=== PATIENT | female | born 1960 | race Hispanic/Latino ===

== ENCOUNTER 2021-04-19 09:15 | Emergency (ER) | payer OTHER ==
[~2021-04-19] VITALS: Ht 152.4 cm; Wt 84.5 kg
[2021-04-19 10:08] LABS: HEMATOCRIT 40.3 % (37.0-47.0); HEMOGLOBIN 12.9 g/dl (12.0-16.0); IMMATURE GRANULOCYTES 0.1 % (0.0-5.0); MEAN CELL VOLUME 94.2 fL CALC (80.0-100.0); MEAN CORPUSCULAR HGB 30.1 pG CALC (26.0-32.0); NEUT# 4.69 thou/uL (2.00-7.15); RED BLOOD COUNT 4.28 mill/uL (4.20-5.60); RED CELL DISTRI WIDTH 13.2 % (11.5-15.5)
[2021-04-19 10:14] LABS: URINE BILIRUBIN - DIPSTICK NEGATIVE (NEGATIVE); URINE BLOOD DIPSTICK NEGATIVE (NEGATIVE); URINE COLOR YELLOW; URINE GLUCOSE - DIPSTICK NEGATIVE (NEGATIVE); URINE KETONE TRACE mg/dL (NEGATIVE); URINE LEUK ESTERASE NEGATIVE (NEGATIVE); URINE PH 5.5 (4.5-8.0); URINE PROTEIN - DIPSTICK NEGATIVE (NEG-TRACE); URINE SPECIFIC GRAVITY >=1.030; URINE UROBILINOGEN - DIPSTICK 0.2 E.U./dL (0.2)
[2021-04-19 10:18] LABS: URINE NITRITE - DIPSTICK NEGATIVE (Negative)
[2021-04-19 10:30] LABS: ALBUMIN 3.8 g/dL (3.2-5.0); ALKALINE PHOSPHATASE 77 u/l (38-126); ANION GAP 10 (6-22 (CALC)); BILIRUBIN, TOTAL 0.4 mg/dL (0.0-1.4); BUN 16 mg/dL (7-17); BUN/CREATININE RATIO 28 (12-20 (CALC)); CARBON DIOXIDE 26 mmol/l (22-30); CHLORIDE 106 mmol/l (95-108); CREATININE 0.6 mg/dL (0.5-1.0); GFR > 60 ML/MIN (>=60 (CALC)); GFR FOR AFR.AMER. > 60 ML/MIN (>=60 (CALC)); LIPASE 58 u/l (23-300); POTASSIUM 4.4 mmol/l (3.5-5.1); SGOT/AST 30 u/l (14-36); SODIUM 137 mmol/l (137-146)
[2021-04-19 11:59] VITALS: BP 128/65
== END 2021-04-19 12:00 | disposition home or self-care (01) | DRG 392 ==
LOC: ED 09:15
PROVIDERS: Family Medicine
DX: R10.32 Left lower quadrant pain (principal)
CPT/HCPCS: Q9967

== ENCOUNTER 2021-09-06 07:18 | Day surgery (SDC) | payer OTHER ==
[~2021-09-06] VITALS: Ht 144.8 cm; Wt 85.7 kg
[2021-09-06 09:40] VITALS: BP 91/50
== END 2021-09-06 09:57 | disposition home or self-care (01) | DRG 951 ==
LOC: ENDO 07:18
PROVIDERS: ATTEND Surgery
PROC: 0DJD8ZZ Inspection of Lower Intestinal Tract, Via Natural or Artificial Opening Endoscopic (ICD-10-PCS; principal; 2021-09-06)
DX: Z12.11 Encounter for screening for malignant neoplasm of colon (principal)

== ENCOUNTER 2024-05-20 08:04 | Day surgery (SDC) | payer OTHER ==
[~2024-05-20] VITALS: Ht 149.9 cm; Wt 84.4 kg
[~2024-05-20 08:04] MED LIST: ALBUTEROL SULFATE IN; GABAPENTIN300 M2; KAPSPARGO SPRIN25 MG; MELOXICAM15 MG PO; OMEPRAZOLE DR40 MG PO; TRAZODONE100 MG PO; WIXELA INHUB 251 AER IN
[2024-05-20] MEDS ORDERED: LACTATED RINGER'S 1,000 ML IV ONE (08:07)
[2024-05-20] MEDS ORDERED: FAMOTIDINE 10MG/ML 2ML SDV IV ONE (08:07)
[2024-05-20] MEDS ORDERED: OMEPRAZOLE DR40 MG PO (10:41)
[2024-05-20 11:05] VITALS: BP 125/72
[2024-05-20] MEDS ORDERED: GLYCOPYRROLATE 0.2 MG/ML IV ONE (13:25)
[2024-05-20] MEDS ORDERED: PROPOFOL 200 MG/20 ML VIAL IV ONE (13:25)
[2024-05-20] MEDS ORDERED: LIDOCAINE HCL 2% 2ML SDV IV ONE (13:25)
== END 2024-05-20 11:00 | disposition home or self-care (01) ==
LOC: ORM 08:04
PROVIDERS: ATTEND Surgery
DX: K25.9 Gastric ulcer, unspecified as acute or chronic, without hemorrhage or perforation (principal); K31.89 Other diseases of stomach and duodenum; I10 Essential (primary) hypertension; Z79.899 Other long term (current) drug therapy

== ENCOUNTER 2025-01-05 14:37 | Emergency (ER) | payer OTHER ==
[2025-01-05] VITALS (11 sets, daily range): BP systolic 90–141; BP diastolic 57–79
[~2025-01-05] VITALS: Ht 149.9 cm; Wt 88.5 kg
[2025-01-05] MEDS ORDERED: ONDANSETRON HCl 4 MG/2 ML SDV IV ONE (15:05)
[2025-01-05 15:19] LABS: BASO% 0.4 % (0-3); EOS% 2.1 % (0-8); HEMATOCRIT 42.1 % (37.0-47.0); HEMOGLOBIN 13.8 g/dl (12.0-16.0); IMMATURE GRANULOCYTES 0.1 % (0.0-5.0); LYMPH% 32.2 % (15-41); MEAN CELL VOLUME 92.9 fL CALC (80.0-100.0); MEAN CORPUSCULAR HGB 30.5 pG CALC (26.0-32.0); MEAN CORPUSCULAR HGB CONC 32.8 g/dL CAL (32.0-36.0); MONO% 6.5 % (2-13); NEUT# 4.18 thou/uL (2.00-7.15); NEUT% 58.7 % (42-76); RED BLOOD COUNT 4.53 mill/uL (4.20-5.60); RED CELL DISTRI WIDTH 13.1 % (11.5-15.5)
[2025-01-05 15:34] LABS: ALBUMIN 4.1 g/dL (3.2-5.0); ALKALINE PHOSPHATASE 85 u/l (38-126); ANION GAP 11 (6-22 (CALC)); BILIRUBIN, TOTAL 0.4 mg/dL (0.02-1.3); BUN 16 mg/dL (8-23); BUN/CREATININE RATIO 24 (12-20 (CALC)); CARBON DIOXIDE 28 mmol/l (22-30); CHLORIDE 105 mmol/l (95-108); CREATININE 0.7 mg/dL (0.5-1.0); ESTIMATED GFR 98 ML/MIN (>=90 (CALC)); POTASSIUM 4.2 mmol/l (3.5-5.1); SGOT/AST 34 u/l (9-36); SODIUM 139 mmol/l (137-146); TOTAL PROTEIN 7.3 g/dL (6.3-8.2)
[2025-01-05 15:43] LABS: URINE BILIRUBIN - DIPSTICK Negative (NEGATIVE); URINE BLOOD DIPSTICK Negative (NEGATIVE); URINE COLOR Yellow; URINE GLUCOSE - DIPSTICK Negative (NEGATIVE); URINE KETONE Negative (NEGATIVE); URINE LEUK ESTERASE Negative (NEGATIVE); URINE NITRITE - DIPSTICK Negative (Negative); URINE PROTEIN - DIPSTICK Negative (NEG-TRACE); URINE UROBILINOGEN - DIPSTICK 0.2 E.U./dL (0.2)
[2025-01-05] MEDS ORDERED: METOCLOPRAMIDE HCL 10 MG/2 ML SDV IV ONE (17:00)
[2025-01-05] MEDS ORDERED: SODIUM CHLORIDE 0.9% 1,000 ML IV ONE (17:00)
[2025-01-05] MEDS ORDERED: KETOROLAC TROMETHAMINE 30 MG/ML SDV IV ONE (17:00)
[2025-01-05] MEDS ORDERED: DiphenhydrAMINE HCL 50 MG/ML SDV IV ONE (17:00)
[2025-01-05] MEDS ORDERED: NAPROXEN500 MG PO (19:13)
== END 2025-01-05 20:00 | disposition home or self-care (01) | DRG 103 ==
LOC: ED 14:37
PROVIDERS: Nurse Practitioner
DX: R51.9 Headache, unspecified (principal)
CPT/HCPCS: J1200; J2405; J2765